=== PATIENT | male | born 1965 ===

== ENCOUNTER → 2023-10-02 07:46 | Outpatient (REF) | payer OTHER, SELFPAY | LOC: RAD 07:46 | PROVIDERS: ATTENDING PHYSICIAN Internal Medicine Cardiovascular Disease | DX: I10 Essential (primary) hypertension (principal); E78.5 Hyperlipidemia, unspecified; R42 Dizziness and giddiness; Z82.41 Family history of sudden cardiac death; R00.1 Bradycardia, unspecified; R94.39 Abnormal result of other cardiovascular function study | CPT/HCPCS: 75574; Q9967 ==